=== PATIENT | female | born 1985 | race African-American/Black ===

== ENCOUNTER 2020-11-05 19:25 | Emergency (ER) | payer OTHER ==
[2020-11-05 19:35] VITALS: BP 117/67; PULSE 66; TEMP 99.3; BMI 34.0
[2020-11-05] MEDS ORDERED: SODIUM CHLORIDE 1,000 ML IV STA (20:39)
[2020-11-05] MEDS ORDERED: ACETAMINOPHEN 1000 MG/100 ML VIAL (NON FORMULARY) IVPB ONE (20:40)
[2020-11-05] MEDS ORDERED: ACETAMINOPHEN INJECTION 100 ML IVPB ONE (20:49)
[2020-11-05 21:20] LABS: RDW 12.6 % (11.6-15.6)
[2020-11-05 21:24] LABS: BASO % 1.2 % (0-2.0); EOS % 2.1 % (0-4.5); HEMATOCRIT 41.1 % (32.4-45.2); HEMOGLOBIN 13.6 GM/dl (10.7-15.3); LYMPH % 34.2 % (8-40); MCH 28.8 pg (25.7-33.7); MCHC 33.1 g/dl (32.0-36.0); MEAN CELL VOLUME 86.9 fl (80-96); MEAN PLT VOLUME 9.3 fl (7.5-11.1); MONO % 3.9 % (3.8-10.2); NEUT % 58.6 % (42.8-82.8); PLATELET COUNT 291 K/MM3 (134-434); RBC 4.73 M/mm3 (3.60-5.2)
[2020-11-05 21:27] LABS: EPITHELIAL CELLS RARE /hpf
[2020-11-05 21:31] LABS: ALBUMIN 4.3 g/dl (3.4-5.0); BILIRUBIN,TOTAL 0.7 mg/dl (0.2-1); CALCIUM 9.2 mg/dl (8.5-10); TOT PROT 7.3 g/dl (6.4-8.2)
[2020-11-05 21:32] LABS: POTASSIUM 4.5 mmol/L (3.5-5.1)
[2020-11-05] MEDS ORDERED: CYCLOBENZAPRINE HCL 10 MG TABLET (FP) PO ONE (21:59)
[2020-11-05] MEDS ORDERED: CYCLOBENZAPRINE HCL 10 MG TABLET (FP) ONE (22:03)
== END 2020-11-05 22:10 | disposition home or self-care (01) ==
LOC: FER 19:25
PROC: 3E033GC Introduction of Other Therapeutic Substance into Peripheral Vein, Percutaneous Approach (ICD-10-PCS; principal; 2020-11-05)
PROC: 3E0337Z Introduction of Electrolytic and Water Balance Substance into Peripheral Vein, Percutaneous Approach (ICD-10-PCS; principal; 2020-11-05)
DX: M54.89 Other dorsalgia (principal)
CPT/HCPCS: 36415; 80053; 81003; 81015; 84703; 85025; 96361; 96374; 99284-25; J0131